=== PATIENT | female | born 1945 | race Caucasian/White ===

== ENCOUNTER 2018-08-05 21:21 | Emergency (ER) | payer MEDICARE ==
[2018-08-05 21:30] VITALS: BP 109/60
[2018-08-05] MEDS ORDERED: DOXYcycline CAP(*) 100 MG PO ONE (22:26)
--- NOTE | 2018-08-05 22:26 | UC ---
Respiratory Complaint HPI - HPI Summary HPI Summary: 72 yo female with cough (productive) as well as f/c x 4 days fatigue no CP hx pneumonia x many - History of Current Complaint Chief Complaint: UCGeneralIllness Stated Complaint: COUGH, AND CHILLS Time Seen by Provider: 08/05/18 21:40 Hx Obtained From: Patient Onset/Duration: Gradual Onset, Lasting Days Timing: Constant Severity Initially: Mild Severity Currently: Moderate Pain Intensity: 5 Pain Scale Used: 0-10 Numeric Character: Cough: Productive Aggravating Factors: Nothing Alleviating Factors: Nothing Associated Signs And Symptoms: Positive: Fever, Chills Related History: Similar Episode/Dx as: - pneumonia - Allergies/Home Medications Allergies/Adverse Reactions: Allergies Allergy/AdvReac Type Severity Reaction Status Date / Time Penicillins Allergy Swelling Verified 08/05/18 21:38 propoxyphene [From Darvon] Allergy Hallucinati Verified 08/05/18 21:38 ons ADHESIVE Allergy Rash Uncoded 05/03/15 10:04 Home Medications: Home Medications Estradiol 0.025 MG PATCH (NF) 0.5 mg TRANSDERM WEEKLY 08/05/18 [History Confirmed 08/05/18] PMH/Surg Hx/FS Hx/Imm Hx Previously Healthy: Yes Respiratory History: Bronchitis, Pneumonia - Surgical History Surgical History: Yes Surgery Procedure, Year, and Place: appe; T & A; hysterrectomy; bilat eye surgeries x 12; left hip resurfacing, CARDIAC ABLATION - Family History Known Family History: Positive: Hypertension Family History: Non contributory - Social History Alcohol Use: Daily Alcohol Amount: 1 GLASS WINE WITH DINNER Substance Use Type: None Smoking Status (MU): Never Smoked Tobacco Have You Smoked in the Last Year: No When Did the Patient Quit Smoking/Using Tobacco: 35 YRS AGO Review of Systems All Other Systems Reviewed And Are Negative: Yes Constitutional: Positive: Fever, Chills, Fatigue Skin: Positive: Negative Eyes: Positive: Drainage - L chronic, Eye Redness - left chronic ENT: Negative: Sore Throat, Nasal Discharge, Sinus Congestion, Sinus Pain/ Tenderness Respiratory: Positive: Cough Cardiovascular: Positive: Negative Gastrointestinal: Positive: Negative Genitourinary: Positive: Negative Motor: Positive: Negative Musculoskeletal: Positive: Negative Neurological: Positive: Negative Psychological: Positive: Negative Physical Exam Triage Information Reviewed: Yes Appearance: Well-Appearing, No Pain Distress, Well-Nourished Vital Signs: Initial Vital Signs Temp 98.8 F 08/05/18 21:25 Pulse 82 08/05/18 21:25 Resp 19 08/05/18 21:25 BP 109/60 08/05/18 21:25 Pulse Ox 96 08/05/18 21:25 Vital Signs Reviewed: Yes Eyes: Positive: Other: - left eye opacified with drainagae ENT: Positive: Hearing grossly normal. Negative: Nasal congestion, Nasal drainage, Tonsillar swelling, Tonsillar exudate, Sinus tenderness, Uvula midline Dental Exam: Normal Neck: Positive: Supple, Nontender, No Lymphadenopathy Respiratory: Positive: Chest non-tender, No respiratory distress, No accessory muscle use, Crackles - right base. Negative: Normal breath sounds Cardiovascular: Positive: RRR, No Murmur Musculoskeletal: Positive: ROM Intact, No Edema Neurological: Positive: Alert Psychological Exam: Normal Skin Exam: Normal Diagnostics - Radiology No standard instances Radiology Interpretation Completed By: ED Physician Summary of Radiographic Findings: ?RLL INFILTRATE VS SCARRING Respiratory Course/Dx - Differential Dx/Diagnosis Provider Diagnosis: Pneumonia Discharge - Sign-Out/Discharge Documenting (check all that apply): Patient Departure All imaging exams completed and their final reports reviewed: No - Discharge Plan Condition: Stable Disposition: HOME Prescriptions: DOXYcycline CAP(*) [DOXYcycline 100MG CAP(*)] 100 mg PO BID #12 cap Patient Education Materials: Bacterial Pneumonia (ED) Forms: *Gen. Provider Communication Referrals: Shelly Little MD [Primary Care Provider] - 2 Days (recheck in 2-5days) Additional Instructions: take doxy with food avoid sun exposure - Billing Disposition and Condition Condition: STABLE Disposition: Home
--- NOTE | 2018-08-06 08:03 | UC ---
- Progress Note Progress Note: Radiologist reading of chest x-ray from August 05, 2018 comes back with her reading of COPD no acute disease process. Provider interpretation that same date question whether or not there was a right lower lobe infiltrate versus scarring. Patient was treated with doxycycline. Nursing to call patient and inform the patient that the radiologist did not see a pneumonia on the chest x-ray. Patient will continue the present treatment. Course/Dx - Diagnoses Provider Diagnoses: Pneumonia Discharge - Sign-Out/Discharge Documenting (check all that apply): Patient Departure All imaging exams completed and their final reports reviewed: Yes - Discharge Plan Condition: Stable Disposition: HOME Prescriptions: DOXYcycline CAP(*) [DOXYcycline 100MG CAP(*)] 100 mg PO BID #12 cap Patient Education Materials: Bacterial Pneumonia (ED) Forms: *Gen. Provider Communication Referrals: Shelly Little MD [Primary Care Provider] - 2 Days (recheck in 2-5days) Additional Instructions: take doxy with food avoid sun exposure - Billing Disposition and Condition Condition: STABLE Disposition: Home
== END 2018-08-05 22:55 | disposition home or self-care (01) ==
LOC: UCEAST 21:21
DX: J18.9 Pneumonia, unspecified organism (principal); R53.83 Other fatigue; H57.89 Other specified disorders of eye and adnexa; Z88.5 Allergy status to narcotic agent; Z88.0 Allergy status to penicillin; Z91.048 Other nonmedicinal substance allergy status; Z87.891 Personal history of nicotine dependence
CPT/HCPCS: 71046; 99202; A9270-GY; G0463